=== PATIENT | male | born 1975 | race Caucasian/White ===

== ENCOUNTER 2022-09-15 13:56 | Emergency (ER) | payer BC ==
[2022-09-15] MEDS ORDERED: Diphtheria,Pertussis(Acell),Tetanus Vaccine 0.5 ML Syringe IM ONE (14:09)
[2022-09-15] MEDS ORDERED: Lidocaine 1% with EPINEPHrine 1:100,000 50 ML MDV SUBCUT ONE (14:09)
[2022-09-15] MEDS ORDERED: Bacitracin Oint 1 GM U/D Packet TOP ONE (14:09)
[2022-09-15] MEDS ORDERED: ceFAZolin 1 GM Vial IM ONE (14:55)
== END 2022-09-15 15:49 | disposition home or self-care (01) ==
LOC: JP.ED 13:56
DX: S81.812A Laceration without foreign body, left lower leg, initial encounter (principal); I10 Essential (primary) hypertension; Z23 Encounter for immunization; Z79.899 Other long term (current) drug therapy; W26.8XXA Contact with other sharp object(s), not elsewhere classified, initial encounter
CPT/HCPCS: 12004; 90471; 90715; 96372; 99282; J0690